=== PATIENT | male | born 1960 | race African-American/Black ===

== ENCOUNTER → 2017-09-20 | Day surgery (SDC) | payer OTHER ==
[~2017-09-20] MED LIST: LIDOCAINE 1% PF 2 ML VIAL. ID; MIDAZOLAM HCL/PF 2 MG/2 ML VIAL. IV; PROPOFOL 20 ML IV; fentaNYL PF VIAL 100 MCG/2 ML VIAL IV
[2017-09-20] MEDS: IV RINGERS,LACTATED 1000ML 1,000 ML IV (10:19)
== END | disposition home or self-care (01) ==
LOC: SURG 09:34
DX: Z12.11 Encounter for screening for malignant neoplasm of colon (principal); Z72.0 Tobacco use
CPT/HCPCS: 45378; J2704

== ENCOUNTER 2018-07-25 13:53 | Emergency (ER) | payer OTHER ==
[~2018-07-25] VITALS: Ht 167.6 cm; Wt 69.4 kg
[2018-07-25 14:34] VITALS: BP 135/93
--- NOTE | 2018-07-25 15:23 | PHYS DOC ---
Past Medical History Past Medical History: No Pertinent History Past Surgical History: No Surgical History Alcohol Use: Rarely Drug Use: Marijuana Adult General Chief Complaint Chief Complaint: HIP PAIN HPI HPI Patient is a 57 year old -year-old male presents to the ED complaining of left hip pain 2 days ago. States he was walking a lot at a and he noticed he started to have pain. Now when he walks he gets left hip pain that radiates to his leg. Describes the pain as sharp. Rates the pain as 6 out of 10. States the pain is worse with walking. States the pain improves with rest. Denies calf pain, traumatic injury, nausea/vomiting, fever, paresthesias, weakness, bowel/ bladder changes, saddle anesthesia, back pain, abdominal pain, chest pain or shortness of breath. Review of Systems Review of Systems Constitutional: Denies fever or chills [] Eyes: Denies change in visual acuity, redness, or eye pain [] HENT: Denies nasal congestion or sore throat [] Respiratory: Denies cough or shortness of breath [] Cardiovascular: No additional information not addressed in HPI [] GI: Denies abdominal pain, nausea, vomiting, bloody stools or diarrhea [] : Denies dysuria or hematuria [] Musculoskeletal: Complains of hip pain. Denies back pain. Integument: Denies rash or skin lesions [] Neurologic: Denies headache, focal weakness or sensory changes [] All other systems were reviewed and found to be within normal limits, except as documented in this note. Allergies Allergies Allergies Coded Allergies Type Severity Reaction Last Updated Verified No Known Drug Allergies 09/20/17 No Physical Exam Physical Exam Constitutional: Well developed, well nourished, no acute distress, non-toxic appearance. [] HENT: Normocephalic, atraumatic Neck: Normal range of motion, no tenderness, supple, no stridor. [] Cardiovascular:Heart rate regular rhythm, no murmur [] Lungs & Thorax: Bilateral breath sounds clear to auscultation [] Abdomen: Bowel sounds normal, soft, no tenderness, no masses, no pulsatile masses. [] Skin: Warm, dry, no erythema, no rash. [] Back: No tenderness, no CVA tenderness. [] Extremities: Mild left lateral hip tenderness, no cyanosis, no clubbing, ROM intact, no edema. [] Neurologic: Alert and oriented X 3, normal motor function, normal sensory function, no focal deficits noted. [] Psychologic: Affect normal, judgement normal, mood normal. [] Current Patient Data Vital Signs Vital Signs Date Time Temp Pulse Resp B/P (MAP) Pulse Ox O2 Delivery O2 Flow Rate FiO2 07/25/18 14:34 98.3 66 18 135/93 (107) 99 Room Air 98.3 EKG EKG [] Radiology/Procedures Radiology/Procedures PROCEDURE: HIP LEFT 2V WITH PELVIS HIP LEFT 2V WITH PELVIS Clinical Indication: Pt states hip has been hurting since Sat. Denies any specific injury, hurts when pt gets up to walk, then feels ok. Comparison: None. Findings: No acute fracture or dislocation of the left hip. On single view the right hip joint is intact. The hip joint spaces are symmetric. No acute pelvic bone abnormality. There is bilateral os acetabuli. Soft tissues unremarkable. Mild degenerative endplate spurring in the lower lumbar spine. IMPRESSION: No acute bone abnormality.[] Course & Med Decision Making Course & Med Decision Making Pertinent Labs and Imaging studies reviewed. (See chart for details) []Discussed imaging findings with patient. Patient's pain improved. Patient able to ambulate without assistance. Neurovascular intact. Discussed follow-up with orthopedics if pain persists. Provided contact information/education. Discussed reasons to return to the ED. Patient understands and agrees with plan. Dragon Disclaimer Dragon Disclaimer This electronic medical record was generated, in whole or in part, using a voice recognition dictation system. Departure Departure Impression: Primary Impression: Hip pain Disposition: 01 HOME, SELF-CARE Condition: IMPROVED Referrals: JOE BOLAND MD (PCP) Patient Instructions: Hip Pain Scripts Ibuprofen (IBUPROFEN) 800 Mg Tablet 800 MG PO PRN Q6HRS PRN for INFLAMMATION, #14 TAB Prov: ADAM JENKINS 07/25/18 ADAM JENKINS Jul 25, 2018 15:23
[2018-07-25] MEDS ORDERED: IBUP-1060 PO (15:25)
== END 2018-07-25 15:40 | disposition home or self-care (01) ==
LOC: ER 13:53
DX: S70.02XA Contusion of left hip, initial encounter (principal); X50.1XXA Overexertion from prolonged static or awkward postures, initial encounter; Y93.89 Activity, other specified; Y92.89 Other specified places as the place of occurrence of the external cause; Y99.8 Other external cause status
CPT/HCPCS: 73502; 99284